=== PATIENT | male | born 1980 | race Caucasian/White ===

== ENCOUNTER → 2024-11-10 16:44 | Outpatient (ROUT) | payer SELFPAY ==
[2024-11-10 17:25] LABS: Influenza A - CEPHEID Flu A NEGATIVE (NEGATIVE); Influenza B - CEPHEID Flu B NEGATIVE (NEGATIVE); Respiratory Syncytial Virus Negative (Negative)
[2024-11-10 17:29] LABS: COVID-19 CEPHEID 4-PLEX PCR Negative (Negative)
== END ==
LOC: LAB 16:45
PROVIDERS: Family Provider Psychiatry & Neurology Psychiatry; PCP Family Medicine; Visit Provider Family Medicine
DX: R05.9 Cough, unspecified (principal); J02.9 Acute pharyngitis, unspecified
CPT/HCPCS: 0241U